=== PATIENT | female | born 1995 | race Caucasian/White ===

== ENCOUNTER 2017-04-02 13:29 | Emergency (ER) | payer OTHER, BC ==
[2017-04-02] MEDS: MORPHINE 4 MG/ML 1ML SYRINGE IM (14:36)
== END 2017-04-02 15:33 | disposition home or self-care (01) ==
LOC: M ED 13:29
DX: K61.1 Rectal abscess (principal); K90.0 Celiac disease
CPT/HCPCS: 87186

== ENCOUNTER → 2017-09-03 | Outpatient (CLI) | payer OTHER | LOC: M WUC 17:22 | DX: S93.422A Sprain of deltoid ligament of left ankle, initial encounter (principal); X58.XXXA Exposure to other specified factors, initial encounter; Y92.89 Other specified places as the place of occurrence of the external cause; Y93.9 Activity, unspecified; Y99.9 Unspecified external cause status | CPT/HCPCS: 73610 ==

== ENCOUNTER → 2023-12-22 | Outpatient (REF) ==
[~2023-12-22] MED LIST: KEFL500C17 PO
== END ==
LOC: M EMP 08:35
PROVIDERS: ATTEND Family Medicine
DX: Z11.52 Encounter for screening for COVID-19 (principal)